=== PATIENT | male | born 1975 | race Caucasian/White ===

== ENCOUNTER 2018-10-21 20:22 | Emergency (ER) | payer MEDICAID ==
[~2018-10-21] VITALS: Ht 182.9 cm; Wt 81.8 kg
[2018-10-21 20:31] VITALS: Ht 182.9 cm; Wt 81.8 kg
[2018-10-21 21:08] LABS: APPEARANCE CLEAR (CLEAR); BILIRUBIN NEGATIVE (NEGATIVE); COLOR YELLOW (YELLOW); GLUCOSE NEGATIVE (NEGATIVE); KETONE NEGATIVE (NEGATIVE); NITRITE NEGATIVE (NEGATIVE); PROTEIN TRACE mg/dL (NEGATIVE); SPECIFIC GRAVITY 1.025 (1.005-1.020); UROBILINOGEN NORMAL (NORMAL)
[2018-10-21 21:09] LABS: BACTERIA FEW /hpf (NONE SEEN); RED CELLS - URINE 0-5 /hpf (0-5); WHITE CELLS - URINE 0-5 /hpf (0-5)
[2018-10-21] MEDS ORDERED: ULTRAM50 MG PO (23:57)
[2018-10-21] MEDS ORDERED: NAPROSYN500 MG PO (23:57)
[2018-10-21] MEDS ORDERED: REMERON15 MG PO (23:58)
[2018-10-22 00:07] VITALS: BP 139/61
== END 2018-10-22 00:07 | disposition home or self-care (01) ==
LOC: D.ER 20:22
PROVIDERS: Family Medicine
DX: R10.9 Unspecified abdominal pain (principal); M25.512 Pain in left shoulder; R31.9 Hematuria, unspecified; F17.200 Nicotine dependence, unspecified, uncomplicated

== ENCOUNTER 2019-03-27 11:12 | Emergency (ER) | payer MEDICAID ==
[~2019-03-27] VITALS: Ht 182.9 cm; Wt 79.5 kg
[~2019-03-27 11:12] MED LIST: NAPROSYN500 MG PO; REMERON15 MG PO; ULTRAM50 MG PO
[2019-03-27 11:19] VITALS: Ht 182.9 cm; Wt 79.5 kg
[2019-03-27 11:36] LABS: BASOPHILS 0.3 % (0-2); EOSINOPHILS 0.8 % (0-7); HEMATOCRIT 41.2 % (42.0-54.0); HEMOGLOBIN 14.7 g/dL (13.5-17.5); IMMATURE GRANULOCYTES 0.3 % (0-5); LYMPHOCYTES 23.9 % (15-50); MCH 33.9 pg (26.0-34.0); MCHC 35.7 g/dL (31.0-37.0); MCV 94.9 fL (80.0-100.0); MEAN PLATELET VOLUME 10.7 fL (7.4-10.4); MONOCYTES 8.9 % (2-11); NEUTROPHILS 65.8 % (40-80); PLATELET COUNT 266 10x3/uL (130-400); RBC 4.34 10x6/uL (4.20-6.10); WBC 10.3 10x3/uL (4.8-10.8)
[2019-03-27 11:49] LABS: APTT 29.2 SECONDS (22.8-39.4); PROTIME 12.7 SECONDS (11.6-15.0)
[2019-03-27 11:53] LABS: ALBUMIN 4.2 g/dL (3.4-5.0); ALKALINE PHOSPHATASE 91 U/L (46-116); ALT (SGPT) 23 U/L (10-68); BILIRUBIN - TOTAL 0.45 mg/dL (0.2-1.3); CALC OSMOLALITY 282 mosm/kg (275-300); CALCIUM 9.5 mg/dL (8.5-10.1); CARBON DIOXIDE 28.3 mmol/L (21.0-32.0); CHLORIDE - SERUM 104 mmol/L (98-107); CREATININE - SERUM 0.9 mg/dL (0.6-1.3); GLUCOSE 98 mg/dL (74-106); POTASSIUM - SERUM 3.9 mmol/L (3.5-5.1); PROTEIN - SERUM 7.9 g/dL (6.4-8.2); SODIUM 142 mmol/L (136-145); UREA NITROGEN 13 mg/dL (7-18); eGFR NON AFRICAN AMERICAN > 90 mL/min (90-120)
[2019-03-27 12:06] LABS: CKMB 1.2 U/L (0.0-3.6); CREATINE KINASE 198 UL (21-232); MAGNESIUM - SERUM 2.1 mg/dL (1.8-2.4); TROPONIN-I < 0.017 ng/mL (0.000-0.060)
[2019-03-27] MEDS ORDERED: ULTRAM50 MG PO (13:31)
[2019-03-27] MEDS ORDERED: NAPROSYN500 MG PO (13:31)
[2019-03-27 13:43] VITALS: BP 116/76
== END 2019-03-27 13:44 | disposition home or self-care (01) ==
LOC: D.ER 11:12
PROVIDERS: Family Medicine
DX: M94.0 Chondrocostal junction syndrome [Tietze] (principal)

== ENCOUNTER 2021-05-03 11:54 | Emergency (ER) | payer BC ==
[~2021-05-03] VITALS: Ht 182.9 cm; Wt 63.6 kg
[2021-05-03 11:56] VITALS: Ht 182.9 cm; Wt 63.6 kg
[2021-05-03] MEDS ORDERED: REMERON30 MG PO (12:25)
[2021-05-03] MEDS ORDERED: SEROQUEL200 MG PO (12:26)
[2021-05-03 12:53] LABS: ANION GAP 18.7 mmol/L (8-16); CALCIUM 9.6 mg/dL (8.5-10.1); CREATININE - SERUM 1.2 mg/dL (0.6-1.3); POTASSIUM - SERUM 3.7 mmol/L (3.5-5.1)
[2021-05-03 13:00] LABS: ALBUMIN 4.5 g/dL (3.4-5.0); BASOPHILS 1.2 % (0-2); BILIRUBIN - TOTAL 0.43 mg/dL (0.2-1.3); EOSINOPHILS 0.9 % (0-7); HEMATOCRIT 43.1 % (42.0-54.0); HEMOGLOBIN 14.5 g/dL (13.5-17.5); LYMPHOCYTES 13.8 % (15-50); MCH 32.9 pg (26.0-34.0); MCHC 33.7 g/dL (31.0-37.0); MCV 97.8 fL (80.0-100.0); MEAN PLATELET VOLUME 9.3 fL (7.4-10.4); MONOCYTES 7.1 % (2-11); PLATELET COUNT 277 10x3/uL (130-400); PROTEIN - SERUM 8.1 g/dL (6.4-8.2); RBC 4.41 10x6/uL (4.20-6.10); RDW 13.7 % (11.5-14.5); WBC 14.8 10x3/uL (4.8-10.8)
[2021-05-03 13:02] LABS: INR 1.07 (0.85-1.17); PROTIME 12.9 SECONDS (11.6-15.0)
[2021-05-03 13:03] LABS: APTT 27.8 SECONDS (22.8-39.4)
[2021-05-03] MEDS ORDERED: HYDROCODON-ACE1 EAC7 PO (13:46)
[2021-05-03 13:55] VITALS: BP 140/72
== END 2021-05-03 14:00 | disposition home or self-care (01) ==
LOC: D.ER 11:54
PROVIDERS: Emergency Medicine
DX: R10.32 Left lower quadrant pain (principal)